=== PATIENT | female | born 2000 | race Caucasian/White ===

== ENCOUNTER 2020-05-29 16:12 | Observation (INO) ==
[2020-05-29] MEDS ORDERED: ACETAMINOPHEN/CODEINE 300-30 MG TABLET PO PRN (17:26)
[2020-05-29 17:41] LABS: Basophils % 0.2 % (0.0-0.8); Eosinophils # 0.1 10*3/uL (0.0-0.87); Eosinophils % 0.9 % (0.00-10.9); Hematocrit 32.9 VOL% (35.7-47.0); Hemoglobin 10.5 GM/DL (12.0-16.0); Immature Granulocytes % 1.5 %; Immature Granulocytes Absolute 0.17 #; Lymphocytes # 1.9 10*3/uL (1.4-4.0); Lymphocytes % 16.8 % (21.3-54.2); Mean Corpuscular HGB Conc 31.9 GM/DL (32-36); Mean Corpuscular Volume 90.9 FL (87-102); Mean Platelet Volume 9.3 FL (9.6-12.0); Monocytes % 7.3 % (1.7-12.7); Neutrophils % 73.3 % (38.7-73.9); Platelet Count 376 T/CUMM (130-400); Red Blood Count 3.62 MC/CUMM (3.8-5.5); White Blood Count 11.4 T/CUMM (4-12)
[2020-05-29] MEDS: DEXTROSE 5% LACTATED RINGERS 1,000 ML IV SCH (17:48)
[2020-05-29 17:58] LABS: Bilirubin,Urine Negative (Negative); Blood, Urine Negative (Negative); Glucose,Urine (UA) Negative (Negative); Ketones,Urine Negative (Negative); Mucus,Urine Occasional /LPF (Occasional); Nitrite,Urine Negative (Negative); Protein,Urine Negative; RBC,Urine 1 /HPF (0-4); Squamous Epithelial Cell,Urine Occasional /HPF (0-10); Urine Appearance CLEAR (Clear); Urine Color Yellow (Yellow); Urine Specific Gravity 1.019 (1.001-1.035); Urine Urobilinogen < 2.0 EU/DL (0.2-1.0); WBC,Urine 4 /HPF (0-6)
[2020-05-29 18:00] LABS: Alanine Aminotransferase 11 U/L (13-56); Albumin 2.6 G/DL (3.4-5.0); Albumin 2.7 G/DL (3.4-5.0); Alkaline Phosphatase 68 U/L (45-117); Alkaline Phosphatase 75 U/L (45-117); Amylase 40 U/L (25-115); Aspartate Amino Transferase 12 U/L (0-37); Aspartate Amino Transferase 13 U/L (0-37); Bilirubin,Direct < 0.050 MG/DL (0.0-0.20); Bilirubin,Indirect 0.3 MG/DL (0.0-1.0); Bilirubin,Total < 0.39 MG/DL (0.2-1.0); Blood Urea Nitrogen 7 MG/DL (7-18); Calcium 8.8 MG/DL (8.5-10.1); Carbon Dioxide 22 MMOL/L (21-32); Estimated Glom Filtration Rate 165 ML/MIN; Glucose 79 MG/DL (74-106); Osmolality,Calculated 273.5 MOS/KG (273-304); Potassium 3.8 MMOL/L (3.5-5.1); Sodium 139 MMOL/L (136-145); Total Protein 6.5 G/DL (6.4-8.2); Total Protein 6.7 G/DL (6.4-8.2); Uric Acid 3.9 MG/DL (2.6-6.0)
[2020-05-29] MEDS: ACETAMINOPHEN/CODEINE 300-30 MG TABLET PO PRN (21:33)
[2020-05-29] MEDS ORDERED: FAMOTIDINE 20 MG/2 ML VIAL IV ONE (21:37)
[2020-05-30] MEDS ORDERED: ONDANSETRON 4 MG/2 ML VIAL IV ONE (04:08)
[2020-05-30] MEDS: ACETAMINOPHEN/CODEINE 300-30 MG TABLET PO PRN ×3 (04:11→19:14)
[2020-05-30] MEDS: DEXTROSE 5% LACTATED RINGERS 1,000 ML IV SCH ×2 (09:07→17:56)
[2020-05-30] MEDS ORDERED: LIDOCAINE 5% PATCH TRANSDERM SCH (14:30)
[2020-05-30] MEDS: FAMOTIDINE INJ 40 MG in SODIUM CHLORIDE 0.9% 100 ML IV SCH (14:57)
[2020-05-31] MEDS: ACETAMINOPHEN/CODEINE 300-30 MG TABLET PO PRN (00:51)
[2020-05-31] MEDS: DEXTROSE 5% LACTATED RINGERS 1,000 ML IV SCH (00:53)
[2020-05-31] MEDS: FAMOTIDINE INJ 40 MG in SODIUM CHLORIDE 0.9% 100 ML IV SCH (03:08)
[2020-05-31 07:30] VITALS: BP 110/57
[2020-05-31] MEDS ORDERED: ONDANSETRON 4 MG/2 ML VIAL IV PRN (08:57)
[2020-05-31] MEDS ORDERED: ACETAMINOPHEN 500 MG TABLET PO PRN (12:00)
[2020-05-31] MEDS ORDERED: LIDOCAINE 5% PATCH TRANSDERM SCH (15:00)
== END 2020-05-31 14:50 | disposition home or self-care (01) ==
LOC: N.LD → N.OB 16:12 → N.OBOUT 16:12 → N.LD 16:12 → N.OB 05-30 21:37 → UNDODEPREF 06-01 13:20
PROVIDERS: ADMIT Specialist; ATTEND Specialist

== ENCOUNTER 2020-07-18 12:02 | Inpatient (IN) ==
[2020-07-18 13:27] LABS: Basophils % 0.3 % (0.0-0.8); Eosinophils # 0.1 10*3/uL (0.0-0.87); Hematocrit 31.1 VOL% (35.7-47.0); Hemoglobin 9.8 GM/DL (12.0-16.0); Immature Granulocytes % 0.7 %; Immature Granulocytes Absolute 0.07 #; Lymphocytes # 1.7 10*3/uL (1.4-4.0); Lymphocytes % 18.4 % (21.3-54.2); Mean Corpuscular HGB Conc 31.5 GM/DL (32-36); Mean Corpuscular Volume 85.2 FL (87-102); Mean Platelet Volume 9.2 FL (9.6-12.0); Neutrophils % 67.6 % (38.7-73.9); Platelet Count 293 T/CUMM (130-400); Red Blood Count 3.65 MC/CUMM (3.8-5.5); Red Cell Distribution Width 14.8 % (9.3-17.3); White Blood Count 9.4 T/CUMM (4-12)
[2020-07-18 13:41] LABS: INR 0.9; PT Patient Result 10.3 SECS (10.5-12.0); Partial Thromboplastin Time 24.7 SECS (23.9-33.8)
[2020-07-18 14:03] LABS: Alanine Aminotransferase 14 U/L (13-56); Albumin 2.5 G/DL (3.4-5.0); Alkaline Phosphatase 121 U/L (45-117); Aspartate Amino Transferase 15 U/L (0-37); Bilirubin,Direct < 0.100 MG/DL (0.0-0.20); Bilirubin,Total < 0.39 MG/DL (0.2-1.0); Blood Urea Nitrogen 5 MG/DL (7-18); Calcium 8.4 MG/DL (8.5-10.1); Carbon Dioxide 20 MMOL/L (21-32); Estimated Glom Filtration Rate 160 ML/MIN; Glucose 95 MG/DL (74-106); Osmolality,Calculated 275.4 MOS/KG (273-304); Potassium 3.9 MMOL/L (3.5-5.1); Sodium 140 MMOL/L (136-145); Total Protein 6.3 G/DL (6.4-8.2); Uric Acid 4.5 MG/DL (2.6-6.0)
[2020-07-18 14:40] LABS: Bilirubin,Urine Negative (Negative); Blood, Urine Negative (Negative); Glucose,Urine (UA) Negative (Negative); Ketones,Urine Negative (Negative); Mucus,Urine Few /LPF (Occasional); Nitrite,Urine Negative (Negative); Protein,Urine Negative; RBC,Urine 1 /HPF (0-4); Squamous Epithelial Cell,Urine Occasional /HPF (0-10); Urine Appearance CLEAR (Clear); Urine Color Yellow (Yellow); Urine Urobilinogen < 2.0 EU/DL (0.2-1.0)
[2020-07-18 15:33] LABS: Protein/Creatinine Ratio,Urine 0.2 RATIO
[2020-07-18] MEDS ORDERED: MEPERIDINE 50 MG/1 ML VIAL IM ONE (15:41)
[2020-07-18] MEDS ORDERED: PROMETHAZINE 25 MG/1 ML VIAL IM ONE (15:41)
[2020-07-18] MEDS ORDERED: LACTATED RINGERS 500 ML IV PRN (21:13)
[2020-07-18] MEDS ORDERED: MEPERIDINE 50 MG/1 ML VIAL IM PRN (21:13)
[2020-07-18] MEDS ORDERED: ONDANSETRON 4 MG/2 ML VIAL IV PRN (21:13)
[2020-07-18 22:03] LABS: Basophils % 0.2 % (0.0-0.8); Eosinophils # 0.1 10*3/uL (0.0-0.87); Eosinophils % 0.5 % (0.00-10.9); Hematocrit 30.8 VOL% (35.7-47.0); Hemoglobin 9.9 GM/DL (12.0-16.0); Immature Granulocytes % 0.6 %; Immature Granulocytes Absolute 0.08 #; Lymphocytes # 1.9 10*3/uL (1.4-4.0); Lymphocytes % 15.1 % (21.3-54.2); Mean Corpuscular HGB Conc 32.1 GM/DL (32-36); Mean Corpuscular Volume 84.6 FL (87-102); Mean Platelet Volume 10.5 FL (9.6-12.0); Monocytes % 7.6 % (1.7-12.7); Platelet Count 320 T/CUMM (130-400); Red Blood Count 3.64 MC/CUMM (3.8-5.5); Red Cell Distribution Width 14.8 % (9.3-17.3); White Blood Count 12.4 T/CUMM (4-12)
[2020-07-18 22:21] LABS: Albumin 2.6 G/DL (3.4-5.0); Bilirubin,Total 0.4 MG/DL (0.2-1.0); Calcium 8.6 MG/DL (8.5-10.1); Osmolality,Calculated 273.4 MOS/KG (273-304); Potassium 3.8 MMOL/L (3.5-5.1); Total Protein 6.6 G/DL (6.4-8.2)
[2020-07-18] MEDS ORDERED: AMPICILLIN INJ 2,000 MG in SODIUM CHLORIDE 0.9% 100 ML IV ONE (22:33)
[2020-07-18] MEDS: LACTATED RINGERS 1,000 ML IV SCH (23:02)
[2020-07-18] MEDS: FAMOTIDINE 20 MG TABLET PO SCH (23:02)
[2020-07-19] MEDS ORDERED: AMPICILLIN INJ 1,000 MG in SODIUM CHLORIDE 0.9% 100 ML IV SCH (02:30)
[2020-07-19] MEDS ORDERED: MEPERIDINE 50 MG/1 ML VIAL IV PRN (05:52)
[2020-07-19] MEDS ORDERED: ePHEDrine 50 MG/ML VIAL IV PRN (06:35)
[2020-07-19] MEDS ORDERED: NALOXONE 0.4 MG/ML VIAL IV PRN (06:35)
[2020-07-19] MEDS ORDERED: CITRIC ACID/SODIUM CITRATE 30 ML UDCUP PO ONE (06:35)
[2020-07-19] MEDS ORDERED: PROMETHAZINE 25 MG/1 ML VIAL IM ONE (06:35)
[2020-07-19] MEDS ORDERED: diphenhydrAMINE 50 MG/1 ML VIAL IV PRN ×2 (06:35)
[2020-07-19] MEDS ORDERED: FAMOTIDINE 20 MG/2 ML VIAL IV ONE (06:35)
[2020-07-19] MEDS ORDERED: hydrOXYzine HCL 25 MG/1 ML VIAL IM PRN (06:35)
[2020-07-19] MEDS ORDERED: LACTATED RINGERS 1,000 ML IV ONE (06:35)
[2020-07-19] MEDS: fentaNYL 2 MCG/ROPIV 0.2% EPID 100 ML EPIDURAL SCH ×3 (08:21→18:32)
[2020-07-19] MEDS: LACTATED RINGERS 1,000 ML IV SCH ×2 (08:31→17:00)
[2020-07-19] MEDS ORDERED: OXYTOCIN/LR 20 UNIT/1,000 ML BAG IV SCH (10:36)
[2020-07-19 12:10] LABS: Bilirubin,Urine Negative (Negative); Blood, Urine Small mg/dL (Negative); Glucose,Urine (UA) Negative (Negative); Ketones,Urine Negative (Negative); Mucus,Urine Few /LPF (Occasional); Nitrite,Urine Negative (Negative); Protein,Urine Negative; RBC,Urine 18 /HPF (0-4); Squamous Epithelial Cell,Urine Few /HPF (0-10); Urine Appearance CLEAR (Clear); Urine Color Yellow (Yellow); Urine Specific Gravity 1.019 (1.001-1.035); Urine Urobilinogen < 2.0 EU/DL (0.2-1.0)
[2020-07-19] MEDS: FAMOTIDINE 20 MG TABLET PO SCH ×3 (18:27→23:33)
[2020-07-19] MEDS ORDERED: miSOPROStoL 200 MCG TABLET ONE (19:40)
[2020-07-19] MEDS ORDERED: CARBOPROST TROMETHAMINE 250 MCG/ML AMP IM ONE (19:41)
[2020-07-19] MEDS ORDERED: METHYLERGONOVINE 0.2 MG/1 ML AMP ONE (19:41)
[2020-07-19] MEDS ORDERED: TRANEXAMIC ACID 1,000 MG/10 ML VIAL ONE (19:41)
[2020-07-19] MEDS ORDERED: LIDOCAINE MPF 2% /EPI 20 ML VIAL ONE (21:08)
[2020-07-19] MEDS ORDERED: ONDANSETRON 4 MG/2 ML VIAL ONE (21:09)
[2020-07-19] MEDS ORDERED: PHENYLEPHRINE 1 MG/10 ML SYRINGE IV ONE ×2 (21:43→22:16)
[2020-07-19] MEDS ORDERED: OXYTOCIN 10 UNIT/ML VIAL ONE (21:56)
[2020-07-19 22:09] LABS: Cord Arterial Blood HCO3 20.2 MMOL/L
[2020-07-19] MEDS ORDERED: propofoL 200 MG/20 ML VIAL IV ONE (22:16)
[2020-07-19] MEDS ORDERED: ONDANSETRON 4 MG/2 ML VIAL IV PRN (22:28)
[2020-07-19] MEDS ORDERED: RHO(D) IMMUNE GLOBULIN 300 MCG SYRINGE IM ONE (22:28)
[2020-07-19] MEDS ORDERED: IBUPROFEN 800 MG TABLET PO PRN (22:28)
[2020-07-19] MEDS ORDERED: SIMETHICONE CHEW 80 MG TABLET PO PRN (22:28)
[2020-07-19] MEDS ORDERED: MAGNESIUM HYDROXIDE SUSP 30 ML UDCUP PO PRN (22:28)
[2020-07-19] MEDS ORDERED: OXYTOCIN/LR 20 UNIT/1,000 ML BAG IV ONE (22:28)
[2020-07-19] MEDS ORDERED: ACETAMINOPHEN 325 MG TABLET PO PRN (22:28)
[2020-07-19] MEDS ORDERED: LACTATED RINGERS 1,000 ML IV SCH (22:30)
[2020-07-19] MEDS ORDERED: KETOROLAC 30 MG/1 ML VIAL IV PRN (23:08)
[2020-07-19] MEDS ORDERED: HYDROmorphone 2 MG/1 ML VIAL IV PRN (23:09)
[2020-07-19 23:10] LABS: Cord Venous Blood HCO3 21.1 MMOL/L; Cord Venous Blood PCO2 54.3 MMHG; Cord Venous Blood PO2 19.6 MMHG
[2020-07-19] MEDS: KETOROLAC 30 MG/1 ML VIAL IV SCH (23:20)
[2020-07-19] MEDS: ACETAMINOPHEN 500 MG TABLET PO SCH (23:45)
[2020-07-20] MEDS: oxyCODONE/ACETAMINOPHEN 5-325 MG TABLET PO PRN ×4 (03:35→21:02)
[2020-07-20 05:23] LABS: Basophils % 0.2 % (0.0-0.8); Eosinophils % 0.2 % (0.00-10.9); Hematocrit 26.3 VOL% (35.7-47.0); Hemoglobin 8.7 GM/DL (12.0-16.0); Immature Granulocytes % 0.6 %; Immature Granulocytes Absolute 0.08 #; Lymphocytes # 1.7 10*3/uL (1.4-4.0); Mean Corpuscular HGB Conc 33.1 GM/DL (32-36); Mean Corpuscular Volume 83.8 FL (87-102); Mean Platelet Volume 9.4 FL (9.6-12.0); Monocytes % 9.3 % (1.7-12.7); Neutrophils % 76.7 % (38.7-73.9); Platelet Count 269 T/CUMM (130-400); Red Blood Count 3.14 MC/CUMM (3.8-5.5); Red Cell Distribution Width 14.7 % (9.3-17.3); White Blood Count 13.2 T/CUMM (4-12)
[2020-07-20] MEDS: ACETAMINOPHEN 500 MG TABLET PO SCH ×2 (05:58→11:45)
[2020-07-20] MEDS: KETOROLAC 30 MG/1 ML VIAL IV SCH ×2 (05:58→13:02)
[2020-07-20] MEDS: DOCUSATE SODIUM 100 MG CAPSULE PO SCH ×2 (08:19→21:01)
[2020-07-20] MEDS: MULTIVITAMIN (PRENATAL) TABLET PO SCH (08:19)
[2020-07-20] MEDS: FAMOTIDINE 20 MG TABLET PO SCH ×2 (13:01→21:01)
[2020-07-20 13:46] LABS: Basophils % 0.1 % (0.0-0.8); Eosinophils % 0.2 % (0.00-10.9); Hematocrit 26.8 VOL% (35.7-47.0); Hemoglobin 8.5 GM/DL (12.0-16.0); Immature Granulocytes % 0.6 %; Immature Granulocytes Absolute 0.08 #; Lymphocytes # 1.3 10*3/uL (1.4-4.0); Lymphocytes % 9.2 % (21.3-54.2); Mean Corpuscular HGB Conc 31.7 GM/DL (32-36); Mean Corpuscular Volume 84.5 FL (87-102); Mean Platelet Volume 9.3 FL (9.6-12.0); Monocytes % 8.8 % (1.7-12.7); Neutrophils % 81.1 % (38.7-73.9); Platelet Count 282 T/CUMM (130-400); Red Blood Count 3.17 MC/CUMM (3.8-5.5); White Blood Count 13.7 T/CUMM (4-12)
[2020-07-20] MEDS ORDERED: RHO(D) IMMUNE GLOBULIN 300 MCG SYRINGE IM ONE (15:08)
[2020-07-20] MEDS ORDERED: ENOXAPARIN 40 MG/0.4 ML SYRINGE SUBCUT SCH (16:30)
[2020-07-20] MEDS: FERROUS SULFATE 325 MG TABLET PO SCH (21:01)
[2020-07-21] MEDS: oxyCODONE/ACETAMINOPHEN 5-325 MG TABLET PO PRN (01:58)
[2020-07-21] MEDS ORDERED: DIPH/TET/ACEL PERT BOOSTER VACCINE 0.5 ML VIAL IM ONE (08:08)
[2020-07-21] MEDS: MULTIVITAMIN (PRENATAL) TABLET PO SCH (08:10)
[2020-07-21] MEDS ORDERED: KETOROLAC 30 MG/1 ML VIAL IV ONE (08:25)
[2020-07-21] MEDS: FERROUS SULFATE 325 MG TABLET PO SCH (08:38)
[2020-07-21] MEDS: FAMOTIDINE 20 MG TABLET PO SCH (08:38)
[2020-07-21] MEDS: DOCUSATE SODIUM 100 MG CAPSULE PO SCH (08:38)
[2020-07-21 09:49] VITALS: BP 129/89
== END 2020-07-21 09:15 | disposition home or self-care (01) | DRG 540 ==
LOC: N.LDOUT 12:02 → N.LD 12:04 → N.OB 07-20 02:20
PROVIDERS: ADMIT Obstetrics & Gynecology; ATTEND Obstetrics & Gynecology
PROC: LDCSECT (ICD-10-PCS; 2020-07-19 21:00)

== ENCOUNTER 2020-07-23 03:46 | Inpatient (IN) ==
[2020-07-23 04:45] LABS: Bilirubin,Urine Negative (Negative); Blood, Urine Large mg/dL (Negative); Glucose,Urine (UA) Negative (Negative); Ketones,Urine Negative (Negative); Mucus,Urine Occasional /LPF (Occasional); Nitrite,Urine Negative (Negative); Protein,Urine 30 MG/DL; RBC,Urine 39 /HPF (0-4); Squamous Epithelial Cell,Urine Few /HPF (0-10); Urine Appearance Slightly Hazy (Clear); Urine Color Yellow (Yellow); Urine Specific Gravity 1.021 (1.001-1.035); Urine Urobilinogen < 2.0 EU/DL (0.2-1.0)
[2020-07-23] MEDS ORDERED: cefTRIAXone 1,000 MG in SODIUM CHLORIDE 0.9% 100 ML IV STA (04:50)
[2020-07-23 05:07] LABS: Basophils % 0.5 % (0.0-0.8); Eosinophils # 0.3 10*3/uL (0.0-0.87); Eosinophils % 3.4 % (0.00-10.9); Hematocrit 26.4 VOL% (35.7-47.0); Hemoglobin 8.3 GM/DL (12.0-16.0); Immature Granulocytes Absolute 0.08 #; Lymphocytes # 1.9 10*3/uL (1.4-4.0); Lymphocytes % 23.6 % (21.3-54.2); Mean Corpuscular HGB Conc 31.4 GM/DL (32-36); Mean Corpuscular Volume 87.1 FL (87-102); Mean Platelet Volume 8.8 FL (9.6-12.0); Monocytes % 10.3 % (1.7-12.7); Neutrophils % 61.2 % (38.7-73.9); Platelet Count 356 T/CUMM (130-400); Red Blood Count 3.03 MC/CUMM (3.8-5.5); Red Cell Distribution Width 15.4 % (9.3-17.3); White Blood Count 7.8 T/CUMM (4-12)
[2020-07-23] MEDS ORDERED: MAGNESIUM SULF RIDER 4 GM/100 ML PREMIX IV ONE ×2 (05:08→06:33)
[2020-07-23] MEDS ORDERED: MAGNESIUM SULF DRIP 40 GM/1,000 ML ML IV ONE (05:08)
[2020-07-23] MEDS ORDERED: FUROSEMIDE 40 MG/4 ML VIAL ONE (05:08)
[2020-07-23 05:41] LABS: Albumin 2.4 G/DL (3.4-5.0); Bilirubin,Total 0.4 MG/DL (0.2-1.0); Calcium 8.4 MG/DL (8.5-10.1); Osmolality,Calculated 280.1 MOS/KG (273-304); Potassium 3.8 MMOL/L (3.5-5.1); Total Protein 6.2 G/DL (6.4-8.2)
[2020-07-23 06:00] LABS: Band Neutrophils 1 % (0-10); Eosinophils 2 % (0-10); Hypochromasia Slight; Lymphocytes 21 % (20-55); Myelocytes 1 %; Platelet Estimate Normal; Segmented Neutrophils 68 % (50-85); Total Cells Counted 100
[2020-07-23] MEDS ORDERED: LACTATED RINGERS 1,000 ML IV SCH (06:30)
[2020-07-23] MEDS ORDERED: ONDANSETRON 4 MG/2 ML VIAL IV PRN (06:30)
[2020-07-23] MEDS ORDERED: MAGNESIUM SULF DRIP 40 GM/1,000 ML ML IV SCH (07:00)
[2020-07-23 07:02] LABS: Basophils % 0.4 % (0.0-0.8); Eosinophils # 0.3 10*3/uL (0.0-0.87); Eosinophils % 3.6 % (0.00-10.9); Hematocrit 25.2 VOL% (35.7-47.0); Hemoglobin 7.9 GM/DL (12.0-16.0); Immature Granulocytes Absolute 0.07 #; Lymphocytes # 1.5 10*3/uL (1.4-4.0); Lymphocytes % 21.1 % (21.3-54.2); Mean Corpuscular HGB Conc 31.3 GM/DL (32-36); Mean Corpuscular Volume 86.6 FL (87-102); Mean Platelet Volume 8.6 FL (9.6-12.0); Monocytes % 9.3 % (1.7-12.7); Neutrophils % 64.6 % (38.7-73.9); Platelet Count 317 T/CUMM (130-400); Red Blood Count 2.91 MC/CUMM (3.8-5.5); Red Cell Distribution Width 15.4 % (9.3-17.3); White Blood Count 6.9 T/CUMM (4-12)
[2020-07-23 07:15] LABS: INR 0.9; PT Patient Result 10.3 SECS (10.5-12.0); Partial Thromboplastin Time 25.9 SECS (23.9-33.8)
[2020-07-23 07:23] LABS: Albumin 2.2 G/DL (3.4-5.0); Bilirubin,Direct 0.1 MG/DL (0.0-0.20); Bilirubin,Total 1.1 MG/DL (0.2-1.0); Calcium 8.6 MG/DL (8.5-10.1); Osmolality,Calculated 273.5 MOS/KG (273-304); Total Protein 5.8 G/DL (6.4-8.2); Uric Acid 5.2 MG/DL (2.6-6.0)
[2020-07-23 07:59] LABS: Bilirubin,Urine Negative (Negative); Blood, Urine Negative (Negative); Glucose,Urine (UA) Negative (Negative); Ketones,Urine Negative (Negative); Mucus,Urine Occasional /LPF (Occasional); Nitrite,Urine Negative (Negative); Protein,Urine Negative; RBC,Urine 1 /HPF (0-4); Squamous Epithelial Cell,Urine Occasional /HPF (0-10); Urine Appearance CLEAR (Clear); Urine Color Yellow (Yellow); Urine Specific Gravity 1.014 (1.001-1.035); Urine Urobilinogen < 2.0 EU/DL (0.2-1.0)
[2020-07-23] MEDS ORDERED: oxyCODONE/ACETAMINOPHEN 5-325 MG TABLET PO PRN (08:39)
[2020-07-23] MEDS: oxyCODONE/ACETAMINOPHEN 5-325 MG TABLET PO PRN ×2 (08:59→18:39)
[2020-07-23] MEDS ORDERED: FUROSEMIDE 40 MG/4 ML VIAL IV ONE (09:00)
[2020-07-24 06:28] LABS: Basophils % 0.3 % (0.0-0.8); Eosinophils # 0.2 10*3/uL (0.0-0.87); Eosinophils % 3.1 % (0.00-10.9); Hematocrit 28.5 VOL% (35.7-47.0); Hemoglobin 9.1 GM/DL (12.0-16.0); Immature Granulocytes % 0.8 %; Immature Granulocytes Absolute 0.06 #; Lymphocytes # 1.7 10*3/uL (1.4-4.0); Lymphocytes % 23.6 % (21.3-54.2); Mean Corpuscular HGB Conc 31.9 GM/DL (32-36); Mean Corpuscular Volume 85.1 FL (87-102); Mean Platelet Volume 8.5 FL (9.6-12.0); Monocytes % 10.4 % (1.7-12.7); Neutrophils % 61.8 % (38.7-73.9); Platelet Count 385 T/CUMM (130-400); Red Blood Count 3.35 MC/CUMM (3.8-5.5); Red Cell Distribution Width 15.7 % (9.3-17.3); White Blood Count 7.3 T/CUMM (4-12)
[2020-07-24 06:45] LABS: Alanine Aminotransferase 16 U/L (13-56); Albumin 2.5 G/DL (3.4-5.0); Alkaline Phosphatase 72 U/L (45-117); Aspartate Amino Transferase 19 U/L (0-37); Bilirubin,Total < 0.39 MG/DL (0.2-1.0); Blood Urea Nitrogen 8 MG/DL (7-18); Calcium 8.7 MG/DL (8.5-10.1); Carbon Dioxide 27 MMOL/L (21-32); Estimated Glom Filtration Rate 158 ML/MIN; Glucose 87 MG/DL (74-106); Osmolality,Calculated 273.5 MOS/KG (273-304); Potassium 3.9 MMOL/L (3.5-5.1); Sodium 139 MMOL/L (136-145); Total Protein 6.5 G/DL (6.4-8.2)
[2020-07-24] MEDS ORDERED: LABETALOL 200 MG TABLET PO ONE (07:32)
[2020-07-24 08:06] VITALS: BP 152/75
== END 2020-07-24 08:32 | disposition home or self-care (01) | DRG 561 ==
LOC: N.ED 03:46 → N.EDINP 03:46 → N.LD 05:39 → N.OB 18:15
PROVIDERS: ADMIT Specialist; ATTEND Obstetrics & Gynecology